=== PATIENT | female | born 2000 | race Caucasian/White ===

== ENCOUNTER 2023-12-05 16:36 | Emergency (ER) | payer BC, SELFPAY ==
[2023-12-05 16:38] VITALS: BP 149/99
[2023-12-05 16:41] LABS: Glucose - Point of Care 219 mg/dl (70-99)
[2023-12-05 16:51] LABS: % Basophils 1.3 % (0-2); % Eosinophils 5.5 % (0-6); % Immature Granulocytes 0.1 % (0-0.5); % Lymphocytes 39.1 % (20.5-51.1); % Monocytes 5.9 % (1.7-9.3); % Neutrophils 48.1 % (42.2-75.2); Absolute Basophils 0.1 10^3/uL (0-0.2); Absolute Eosinophils 0.4 10^3/uL (0-0.7); Absolute Lymphocytes 2.8 10^3/uL (1.2-3.4); Absolute Monocytes 0.4 10^3/uL (0.1-0.6); Absolute Neutrophils 3.4 10^3/uL (1.4-6.5); Hemoglobin 14.9 g/dL (12.0-16.0); Mean Corp Hgb Conc. 34.7 g/dL (33.0-37.0); Mean Corpuscular Hgb 28.5 pg (27.0-31.0); Mean Corpuscular Volume 82.2 fL (81.0-99.0); Mean Platelet Volume 9.7 fL (7.4-10.4); Nucleated Red Blood Cells % 0 %; Platelet Count 359 10^3/uL (130-400); Red Blood Cell Count 5.23 10^6/uL (4.20-5.40); Red Cell Dist. Width 11.4 % (11.5-14.5); White Blood Cell Count 7.1 10^3/uL (4.8-10.8)
[2023-12-05 17:08] LABS: HCG, Serum Qualitative Screen Negative
[2023-12-05 17:11] LABS: ALT (SGPT) 24 U/L (0-35); AST (SGOT) 28 U/L (14-36); Albumin 4.2 g/dl (3.5-5.0); Alkaline Phosphatase 172 U/L (38-126); Blood Urea Nitrogen 5 mg/dl (7-17); Calcium 9.4 mg/dl (8.4-10.2); Carbon Dioxide 28 mmol/L (22-30); Chloride 104 mmol/L (98-107); Glucose 220 mg/dl (70-99); Potassium 4.1 mmol/L (3.5-5.1); Sodium 136 mmol/L (135-145); Total Bilirubin 0.6 mg/dl (0.2-1.3); Total Protein 7.3 g/dl (6.3-8.2); eGFR > 60.00
== END 2023-12-05 17:01 ==
LOC: EMR 16:36
PROVIDERS: EMERGENCY PHYSICIAN Emergency Medicine
DX: R19.7 Diarrhea, unspecified (principal); E10.8 Type 1 diabetes mellitus with unspecified complications; Z53.21 Procedure and treatment not carried out due to patient leaving prior to being seen by health care provider
CPT/HCPCS: 99281; 80053; 82010; 82962; 84703; 85025

== ENCOUNTER 2024-08-24 11:16 | Emergency (ER) | payer OTHER, SELFPAY ==
[2024-08-24 11:21] VITALS: BP 112/80; BMI 31.1
[2024-08-24 11:23] VITALS: BP 112/80
[2024-08-24 11:28] LABS: Glucose - Point of Care 313 mg/dl (70-99)
[2024-08-24] MEDS: NSS 1000 IV ×2 (11:35→12:36)
[2024-08-24] MEDS: ZOFRAN 4 MG IV (11:35)
[2024-08-24 11:41] LABS: Urine Albumin Negative (Neg - Trace); Urine Bilirubin Negative (Negative); Urine Character Clear (Clear); Urine Color Yellow; Urine Glucose 3+ (Negative); Urine Ketone 3+ (Negative); Urine Leukocyte Negative (Negative); Urine Nitrite Negative (Negative); Urine Occult Blood Negative (Negative); Urine Specific Gravity 1.015 (<1.030); Urine Urobilinogen Negative (Neg - 1+); Venous Blood Gas B.E. -0.9 mmol/L (-4 to +4); Venous Blood Gas HCO3 24.3 mmol/L (22-27); Venous Blood Gas pCO2 41 mmHg (35-48); Venous Blood Gas pH 7.38 (7.32-7.43); Venous Blood Gas pO2 192 mmHg (30-50)
[2024-08-24 11:42] LABS: % Basophils 0.9 % (0-2); % Eosinophils 4.1 % (0-6); % Immature Granulocytes 0.2 % (0-0.5); % Lymphocytes 24.2 % (20.5-51.1); % Monocytes 5.7 % (1.7-9.3); % Neutrophils 64.9 % (42.2-75.2); Absolute Basophils 0.1 10^3/uL (0-0.2); Absolute Eosinophils 0.2 10^3/uL (0-0.7); Absolute Lymphocytes 1.4 10^3/uL (1.2-3.4); Absolute Monocytes 0.3 10^3/uL (0.1-0.6); Absolute Neutrophils 3.7 10^3/uL (1.4-6.5); Hematocrit 39.2 % (37.0-47.0); Hemoglobin 13.8 g/dL (12.0-16.0); Mean Corp Hgb Conc. 35.2 g/dL (33.0-37.0); Mean Corpuscular Hgb 28.2 pg (27.0-31.0); Mean Platelet Volume 9.8 fL (7.4-10.4); Nucleated Red Blood Cells % 0 %; Platelet Count 289 10^3/uL (130-400); Red Cell Dist. Width 11.7 % (11.5-14.5); White Blood Cell Count 5.6 10^3/uL (4.8-10.8)
[2024-08-24 11:59] LABS: ALT (SGPT) 15 U/L (0-35); AST (SGOT) 21 U/L (14-36); Albumin 4.1 g/dl (3.5-5.0); Alkaline Phosphatase 139 U/L (38-126); Blood Urea Nitrogen 7 mg/dl (7-17); Calcium 9.4 mg/dl (8.4-10.2); Carbon Dioxide 26 mmol/L (22-30); Chloride 102 mmol/L (98-107); Estimated Creatinine Clearance > 125 ml/min; Glucose 313 mg/dl (70-99); Potassium 4.4 mmol/L (3.5-5.1); Sodium 137 mmol/L (135-145); Total Bilirubin 0.8 mg/dl (0.2-1.3); Total Protein 6.9 g/dl (6.3-8.2); eGFR > 60.00
[2024-08-24 12:00] VITALS: BP 96/78
--- NOTE | 2024-08-24 13:39 | ED.GENMED ---
History of Present Illness
General
Chief Complaint: Abdominal Symptoms
Source: patient
Time Seen by Provider: 08/24/24 11:27
History of Present Illness
History of Present Illness:
24-year-old female with past medical history of type 1 diabetes presenting to the emergency department for evaluation of hyperglycemia after she awoke noting that her insulin pump got disconnected and was not delivering her insulin properly.
Patient states her blood sugar upon awakening was 350. She endorses some abdominal discomfort and some nausea. Patient states her diabetes is usually well-controlled. Last admission was close to 13 years ago. Denies polyuria, polydipsia,
polyphasia. Denies any fevers or infectious symptoms.
Past History
Past History
ED Past Medical History: IDDM and Hypothyroidism; Negative Asthma, HTN or Hypercholesterolemia
ED Past Surgical History: None
Social History
Tobacco: Vaping
Alcohol: Occasional
Drug: None
Personal: Single
Living: with family
Employment: Employed
Family History
Family History: Diabetes
Review of Systems
Review of Systems
All Other Systems: ROS reviewed and negative except as documented in HPI and ROS
Phy Exam
Physical Exam
Physical Exam:
GENERAL: Alert , in no apparent distress
EYE: clear conjunctiva b/l
HEAD: NCAT
ENT: mmm.
CARDIAC: Regular rate and rhythm .
LUNGS: Clear breath sounds bilaterally, no acute respiratory distress, no wheezes/rales/rhonchi
ABDOMEN: Soft, without focal tenderness, no r/g, no cvat
NEUROLOGICAL: Alert and oriented
SKIN: Warm and dry, skin intact.
MUSCULOSKELETAL: well perfused.
PSYCH: Normal and appropriate interaction.
Scores
Heart Failure Risk
Heart Failure Risk Score: Not Applicable
Heart Score for Chest Pain Patients
STEMI patient?: Not applicable
Withdrawal Assessment of Alcohol
Withdrawal Assessment Completed?: Not applicable
Course
Orders/Labs/Results
Orders:
Orders
08/24/24 11:31
Complete Blood Count/With Diff Urgent
Comprehensive Metabolic Panel Urgent
Urine Culture Reflexed from UA [Urinalysis Reflex To Culture] Urgent
Date Specimen was Collected: 08/24/24
Time Specimen was Collected: 11:23
Venous Blood Gas Urgent
%Oxygen/Room Air: 97
08/24/24 11:32
0.9% Sodium Chloride 1000 ml [Nss] 1,000 ml IV BOLUS
Ondansetron Injectable [Zofran] 4 mg IV NOW STA
08/24/24 12:32
0.9% Sodium Chloride 1000 ml [Nss] 1,000 ml IV BOLUS
08/24/24 14:44
Urinalysis Urgent
Date Specimen was Collected: 08/24/24
Time Specimen was Collected: 14:46
Abnormal Lab Results
08/24/24 08/24/24
11:26 11:31
MCV 80.0 L fL
(81.0-99.0)
VBG pO2 192 H mmHg
(30-50)
Glucose 313 H mg/dl
(70-99)
Alkaline Phosphatase 139 H U/L
(38-126)
Urine Ketones 3+ A
(Negative)
Urine Glucose 3+ A
(Negative)
POC Glucose 313 H mg/dl
(70-99)
08/24/24 11:31
08/24/24 11:31
Vital Signs
Initial and Last Documented VS:
Initial Vital Signs
Temp Pulse Resp BP Pulse Ox
98.2 F 72 16 112/80 97
08/24/24 11:21 08/24/24 11:21 08/24/24 11:21 08/24/24 11:21 08/24/24 11:21
Last Documented Vital Signs
Temp Pulse Resp BP Pulse Ox
98.2 F 69 21 96/78 97
08/24/24 11:21 08/24/24 12:45 08/24/24 12:45 08/24/24 12:00 08/24/24 12:45
MDM/Problems Addressed
Differential Diagnosis Includes:
DKA, HHNK, hyperglycemia 2/2 device malfunction
MDM/Problems Addressed:
24-year-old female presenting to the emergency department for evaluation of hyperglycemia after her insulin pump malfunctioned overnight. Patient's fingerstick glucose greater than 300 here. Labs including VBG sent. Will order fluids. Patient's
insulin pump is now reconnected. Will hold off on dosing insulin to patient as I would be concerned of potentially causing patient to go hypoglycemic. Will closely monitor
*Pulse Oximetry
Patient hypoxic: no
*Critical Care Note
Total Time (30-74mins, 75-104mins- exclusive of procedures): Not Applicable
Comment
Comment:
Following 1 L of fluids patient notes that she is feeling a little bit better. Labs are reassuring with no anion gap, pH is within normal limits. Patient does have some ketones so we will continue to treat with fluids. I do anticipate discharge
home.
Patient Management
Escalation/DeEscalation of care consider admission/obs:
Patient feeling significantly better following 2 L of IV fluids. Her glucometer shows that she has a current glucose of 125. Patient feels comfortable being discharged home. Requesting a second urine be sent to check for ketones. Advised patient
follow-up with primary care provider but otherwise stable for discharge home and aware of return precautions.
ED Attending Note
-
Portions of this chart may have been created with voice recognition software.� Occasional wrong word or��sound alike� substitutions may have occurred due to the inherent limitations of voice recognition software.
Discharge Plan
Departure
Patient Disposition: Home (Routine Discharge)
Date of Disposition: 08/24/24
Time of Disposition: 14:43
Patient with high blood pressure during this ER visit?: No
Discharge Problem:
Acute hyperglycemia, Insulin pump mechanical complication
Instructions: High Blood Sugar, Adult ED
Prescriptions:
No Action
levothyroxine [Synthroid] 137 mcg Tablet
137 mcg PO DAILY
clonazepam [Klonopin] 0.5 mg Tablet
0.5 mg PO BID PRN (Reason: anxiety)
norethindrone-e.estradiol-iron [Junel FE 12/04 (28)] 1 mg-20 mcg (21)/75 mg (7) Tablet
1 tab PO DAILY
insulin aspart U-100 [Novolog U-100 Insulin aspart] 100 unit/mL Solution
0 sliding scale dose SC DIRECTED
Rx Instructions:
through insulin pump
buspirone [BuSpar] 10 mg Tablet
10 mg PO BID
sertraline 200 mg Capsule
200 mg PO DAILY
ondansetron 4 mg tablet,disintegrating
4 mg PO QID PRN (Reason: nausea and vomiting) Qty: 20 0RF
ondansetron 4 mg tablet,disintegrating
4 mg PO Q8H PRN (Reason: nausea and vomiting) Qty: 14 0RF
dicyclomine 10 mg capsule
10 mg PO QID PRN (Reason: abdominal pain) Qty: 10 0RF
Referrals:
Madhavi Darby MD [Family Provider] -
Interventions
Interventions:
*Risk Screen - Suicide Last Done: 08/24/24 11:21
*General Assessment Last Done: 08/24/24 11:21
*Neglect/Abuse Screening Last Done: 08/24/24 11:21
*ED COVID-19 Vaccine History Last Done: 08/24/24 11:21
RW-Cfkxmf-Ivfgngyfxd Assessment Last Done: 08/24/24 11:21
Discharge Date and Time
Print Language: BULGARIAN
[2024-08-24 15:32] LABS: Urine Albumin Negative (Neg - Trace); Urine Bilirubin Negative (Negative); Urine Character Slightly Cloudy (Clear); Urine Color Yellow; Urine Glucose 3+ (Negative); Urine Ketone 1+ (Negative); Urine Leukocyte Negative (Negative); Urine Nitrite Negative (Negative); Urine Occult Blood Negative (Negative); Urine Urobilinogen 1+ (Neg - 1+)
== END 2024-08-24 15:09 | disposition home or self-care (01) ==
LOC: EMR 11:16
PROVIDERS: Physician Assistant Medical; EMERGENCY PHYSICIAN Emergency Medicine; FAMILY PHYSICIAN Internal Medicine Endocrinology, Diabetes & Metabolism
DX: E10.65 Type 1 diabetes mellitus with hyperglycemia (principal); T85.694A Other mechanical complication of insulin pump, initial encounter; T38.3X6A Underdosing of insulin and oral hypoglycemic [antidiabetic] drugs, initial encounter; Y82.8 Other medical devices associated with adverse incidents; F17.290 Nicotine dependence, other tobacco product, uncomplicated
CPT/HCPCS: 99284; 96374; 96361 ×2; 80053; 81003; 82805; 82962; 85025

== ENCOUNTER 2024-10-20 05:20 | Emergency (ER) | payer OTHER, SELFPAY ==
[2024-10-20 05:30] VITALS: BP 151/91
[2024-10-20 06:02] VITALS: BMI 31.2
[2024-10-20] MEDS: ZOFRAN 4 MG IV (06:23)
[2024-10-20] MEDS: NSS 500 IV (06:23)
[2024-10-20 06:27] LABS: % Basophils 0.9 % (0-2); % Eosinophils 4.3 % (0-6); % Immature Granulocytes 0.2 % (0-0.5); % Lymphocytes 26.4 % (20.5-51.1); % Monocytes 5.9 % (1.7-9.3); % Neutrophils 62.3 % (42.2-75.2); Absolute Basophils 0.1 10^3/uL (0-0.2); Absolute Eosinophils 0.2 10^3/uL (0-0.7); Absolute Lymphocytes 1.5 10^3/uL (1.2-3.4); Absolute Monocytes 0.3 10^3/uL (0.1-0.6); Absolute Neutrophils 3.5 10^3/uL (1.4-6.5); Hematocrit 42.2 % (37.0-47.0); Hemoglobin 14.5 g/dL (12.0-16.0); Mean Corp Hgb Conc. 34.4 g/dL (33.0-37.0); Mean Corpuscular Hgb 27.7 pg (27.0-31.0); Mean Corpuscular Volume 80.7 fL (81.0-99.0); Mean Platelet Volume 10.1 fL (7.4-10.4); Nucleated Red Blood Cells % 0 %; Platelet Count 334 10^3/uL (130-400); Red Blood Cell Count 5.23 10^6/uL (4.20-5.40); Red Cell Dist. Width 11.7 % (11.5-14.5); White Blood Cell Count 5.6 10^3/uL (4.8-10.8)
[2024-10-20] MEDS: PROTONIX IV 40 MG IV (06:32)
[2024-10-20 06:40] LABS: HCG, Serum Qualitative Screen Negative
[2024-10-20 06:47] LABS: ALT (SGPT) 19 U/L (0-35); AST (SGOT) 21 U/L (14-36); Albumin 4.3 g/dl (3.5-5.0); Alkaline Phosphatase 170 U/L (38-126); Blood Urea Nitrogen 6 mg/dl (7-17); Calcium 9.4 mg/dl (8.4-10.2); Carbon Dioxide 25 mmol/L (22-30); Chloride 100 mmol/L (98-107); Estimated Creatinine Clearance > 125 ml/min; Glucose 341 mg/dl (70-99); Lipase 62 U/L (23-300); Potassium 3.8 mmol/L (3.5-5.1); Sodium 136 mmol/L (135-145); Total Bilirubin 0.6 mg/dl (0.2-1.3); Total Protein 7.1 g/dl (6.3-8.2); eGFR > 60.00
[2024-10-20 07:00] LABS: Magnesium 1.6 mg/dl (1.6-2.3)
--- NOTE | 2024-10-20 07:35 | ED.GENMED ---
History of Present Illness
General
Chief Complaint: Abdominal Pain
Source: patient
Exam Limitations: none
Time Seen by Provider: 10/20/24 06:04
Nursing documentation reviewed up to this point in time: agreed with
History of Present Illness
History of Present Illness:
Patient with history of type 1 diabetes on insulin pump, presents to ED secondary to persistent left upper abdominal pain associated with nausea sensation without vomiting over the past 5 days, along with decreased appetite. This morning, she noted
that her blood sugar was low (70s). She proceeded to drink multiple cups of apple juice and orange juice. Shortly afterwards, patient started to have multiple loose bowel movements along with elevated blood sugar. Denies fever or chills.
Abdominal pain described as crampy/sharp, nonradiating, without any alleviating or exhausting factors. Denies sick contact. Denies recent travel. Denies recent change in medications or diet. 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
states that her blood sugars continue to remain high, usually in 200 range.
Past History
Past History
ED Past Medical History: IDDM and Hypothyroidism; Negative Asthma, HTN or Hypercholesterolemia
ED Past Surgical History: None
Social History
Tobacco: Vaping
Alcohol: Occasional
Drug: None
Personal: Single
Living: with family
Employment: Employed
Family History
Family History: Diabetes
Review of Systems
Review of Systems
Allergies reviewed?: Yes
All Other Systems: ROS reviewed and negative except as documented in HPI and ROS
Constitutional: Reports no symptoms
EENT: Reports no symptoms
Respiratory: Reports no symptoms
Cardiac: Reports no symptoms
ABD/GI: Reports abdominal pain, nausea and diarrhea; Denies vomiting
: Reports no symptoms
Musculoskeletal: Reports no symptoms
Skin: Reports no symptoms
Neurological: Reports no symptoms
Phy Exam
Physical Exam
Physical Exam:
Physical Exam
General: no apparent distress, not acutely ill. afebrile
Head: nc/at. eomi
Neck: supple. no meningeal signs. normal posterior pharynx
Heart: tachycardic, no murmur. equal radial pulses.
Lungs: no acute respiratory distress. clear bilaterally
Abdomen: normal bowel sounds. not tender. no distention
Neuro: alert and oriented. no focal neurological deficits
Skin: no rash
Psychiatric: well kept. interactive and cooperative
Extremities: no edema. no calf tenderness.
Course
Orders/Labs/Results
Orders:
Orders
10/20/24 05:57
IV Insert/Care/Rem.- Treatment PRN
10/20/24 05:58
Test Result ONCE
10/20/24 06:01
Complete Blood Count/With Diff Urgent
Comprehensive Metabolic Panel Urgent
HCG, Serum Qualitative Screen Urgent
Comment: Notify provider if positive test present
Lipase Urgent
Magnesium Urgent
Comment: ADD ON
Monotest Urgent
Comment: ADD ON
10/20/24 06:15
Add On- LAB Urgent
Tests Added?: magnesium, monotest
0.9% Sodium Chloride 500 ml [Nss] 500 ml IV BOLUS
Ondansetron Injectable [Zofran] 4 mg .ROUTE .STK-MED ONE
Ondansetron Injectable [Zofran] 4 mg IV NOW STA
Pantoprazole [Protonix IV] 40 mg IV NOW STA
10/20/24 07:07
STOOL [C difficile Antigen & Toxins] Urgent
TRAV Source: Feces/Stool
Specimen Description:
Date Specimen was Collected: 10/20/24
Time Specimen was Collected: 07:02
Stool Culture Urgent
TRAV Source: Feces/Stool
Specimen Description:
Date Specimen was Collected: 10/20/24
Time Specimen was Collected: 07:02
10/20/24 08:20
Urinalysis Reflex To Culture Urgent
Date Specimen was Collected: 10/20/24
Time Specimen was Collected: 07:02
10/20/24 09:22
CT Abd/pel Without Iv Or Oral Urgent
Comment:
Reason For Exam: left flank/back pain
Abnormal Lab Results
10/20/24 10/20/24 10/20/24
06:01 08:17 08:20
MCV 80.7 L fL
(81.0-99.0)
BUN 6 L mg/dl
(7-17)
Glucose 341 H mg/dl
(70-99)
Alkaline Phosphatase 170 H U/L
(38-126)
Urine Glucose 3+ A
(Negative)
POC Glucose 259 H mg/dl
(70-99)
10/20/24 06:01
10/20/24 06:01
Vital Signs
Initial and Last Documented VS:
Initial Vital Signs
Temp Pulse Resp BP Pulse Ox
97.9 F 141 22 151/91 99
10/20/24 05:30 10/20/24 05:30 10/20/24 05:30 10/20/24 05:30 10/20/24 05:30
Last Documented Vital Signs
Temp Pulse Resp BP Pulse Ox
97.9 F 88 16 102/73 96
10/20/24 05:30 10/20/24 10:05 10/20/24 10:05 10/20/24 10:05 10/20/24 10:05
MDM/Problems Addressed
MDM/Problems Addressed:
Patient with an unremarkable workup in ED, including blood work and CT abdomen pelvis. Patient remains afebrile, hemodynamically stable, with improved blood sugar during observation. Patient with nonspecific abdominal pain, likely viral in nature
versus musculoskeletal. Patient otherwise is stable to be discharged home, with recommendation to continue bland diet at home along with PCP follow-up. Patient advised to return to ED with worsening symptoms, i.e. fever/worsening pain/vomiting.
*Critical Care Note
Total Time (30-74mins, 75-104mins- exclusive of procedures): Not Applicable
ED Attending Note
-
Portions of this chart may have been created with voice recognition software.� Occasional wrong word or��sound alike� substitutions may have occurred due to the inherent limitations of voice recognition software.
Discharge Plan
Departure
Patient Disposition: Home (Routine Discharge)
Date of Disposition: 10/20/24
Time of Disposition: 10:41
Patient with high blood pressure during this ER visit?: Yes
Condition: Good
Discharge Problem:
Abdominal pain, Hyperglycemia
Instructions: [place] Diet, High Blood Sugar, Adult ED, Abdominal Pain
Prescriptions:
No Action
levothyroxine [Synthroid] 137 mcg Tablet
137 mcg PO DAILY
clonazepam [Klonopin] 0.5 mg Tablet
0.5 mg PO BID PRN (Reason: anxiety)
norethindrone-e.estradiol-iron [June FE 12/04 (28)] 1 mg-20 mcg (21)/75 mg (7) Tablet
1 tab PO DAILY
insulin aspart U-100 [Novolog U-100 Insulin aspart] 100 unit/mL Solution
0 sliding scale dose SC DIRECTED
Rx Instructions:
through insulin pump
buspirone [BuSpar] 10 mg Tablet
10 mg PO BID
sertraline 200 mg Capsule
200 mg PO DAILY
ondansetron 4 mg tablet,disintegrating
4 mg PO QID PRN (Reason: nausea and vomiting) Qty: 20 0RF
ondansetron 4 mg tablet,disintegrating
4 mg PO Q8H PRN (Reason: nausea and vomiting) Qty: 14 0RF
dicyclomine 10 mg capsule
10 mg PO QID PRN (Reason: abdominal pain) Qty: 10 0RF
Referrals:
Madhavi Darby MD [Family Provider] -
Activity Restrictions/Additional Instructions:
As discussed, please follow-up with your primary care physician with any further concerns. Please return to ED with worsening symptoms, i.e. fever/worsening pain/vomiting.
Interventions
Interventions:
*Risk Screen - Suicide Last Done: 10/20/24 05:30
*General Assessment Last Done: 10/20/24 06:02
*Neglect/Abuse Screening Last Done: 10/20/24 06:02
ED- Fall Risk Assessment Last Done: 10/20/24 06:37
*ED COVID-19 Vaccine History Last Done: 10/20/24 06:02
*Nursing Disposition Last Done: 10/20/24 11:00
YX-Kypunl-Zxwhucooiw Assessment Last Done: 10/20/24 06:37
Discharge Date and Time
Discharge Date/Time: 10/20/24 11:15
Print Language: KAZAKH
[2024-10-20 07:54] LABS: Monotest Negative (Negative)
[2024-10-20 08:12] VITALS: BP 104/70
[2024-10-20 08:18] LABS: Glucose - Point of Care 259 mg/dl (70-99)
[2024-10-20 09:11] LABS: Urine Albumin Negative (Neg - Trace); Urine Bilirubin Negative (Negative); Urine Character Clear (Clear); Urine Color Yellow; Urine Glucose 3+ (Negative); Urine Ketone Negative (Negative); Urine Leukocyte Negative (Negative); Urine Nitrite Negative (Negative); Urine Occult Blood Negative (Negative); Urine Specific Gravity 1.015 (<1.030); Urine Urobilinogen Negative (Neg - 1+)
[2024-10-20 10:05] VITALS: BP 102/73
== END 2024-10-20 11:15 | disposition home or self-care (01) ==
LOC: EMR 05:20
PROVIDERS: Student in an Organized Health Care Education/Training Program; EMERGENCY PHYSICIAN Emergency Medicine; FAMILY PHYSICIAN Internal Medicine Endocrinology, Diabetes & Metabolism
DX: R10.9 Unspecified abdominal pain (principal); E10.65 Type 1 diabetes mellitus with hyperglycemia; E03.9 Hypothyroidism, unspecified; F17.290 Nicotine dependence, other tobacco product, uncomplicated; Z83.3 Family history of diabetes mellitus; Z79.4 Long term (current) use of insulin; Z96.41 Presence of insulin pump (external) (internal)
CPT/HCPCS: 99284; 96374; 96375; 96361; 74176; 80053; 81003; 82962; 83690; 83735; 84703; 85025; 86308; 87045; 87046; 87077; 87324; 87427; 87449

== ENCOUNTER 2025-06-14 17:01 | Emergency (ER) | payer OTHER, SELFPAY ==
[2025-06-14 17:04] VITALS: BP 143/93
--- NOTE | 2025-06-14 18:02 | ED.GENMED ---
History of Present Illness
General
Chief Complaint: Dental Problem
Source: patient
Exam Limitations: none
Time Seen by Provider: 06/14/25 17:44
Nursing documentation reviewed up to this point in time: agreed with
History of Present Illness
History of Present Illness:
24-year-old female with history as noted presents to the ER for evaluation of dental pain. Patient reports that she has poor dentition and has not seen a dentist because she has a phobia. She says that over the past few months she noticed that her
left upper rear molar has been cracked and has started to turn black. Over the past 48 hours she has started to develop significant pain in that tooth and in the left side of her face. She has been taking Tylenol and ibuprofen but decided to come
to the ER with poorly controlled pain. She has not had a fever or chills. She has not noticed any facial swelling or redness. She denies any other acute issues.
Past History
Past History
ED Past Medical History: IDDM and Hypothyroidism; Negative Asthma, HTN or Hypercholesterolemia
ED Past Surgical History: None
Social History
Tobacco: Vaping
Alcohol: Occasional
Drug: None
Personal: Single
Living: with family
Employment: Employed
Family History
Family History: Diabetes
Review of Systems
Review of Systems
All Other Systems: ROS reviewed and negative except as documented in HPI and ROS
Constitutional: Denies fever
EENT: Reports other (Dental pain)
Respiratory: Denies trouble breathing
Cardiac: Denies chest pain
ABD/GI: Denies vomiting
Phy Exam
Physical Exam
Physical Exam:
General: Well appearing and non-toxic
HEENT: protecting airway, no tongue elevation, midline uvula; she has visible tooth decay left posterior molar tooth #16 with pain to percussion; no visible swelling of the gum; she has no swelling of the cheek or face on the left side
Neck: appears supple
CV: No evidence of cyanosis
Resp: No accessory muscle use
Abd: Non-distended
Extremities: No deformities
Neuro: Alert
Psych: Normal affect
Skin: Intact
Scores
Heart Failure Risk
Heart Failure Risk Score: Not Applicable
Heart Score for Chest Pain Patients
STEMI patient?: Not applicable
Withdrawal Assessment of Alcohol
Withdrawal Assessment Completed?: Not applicable
Course
Orders/Labs/Results
Orders:
Orders
06/14/25 18:00
Clindamycin HCl [Cleocin] 450 mg PO NOW STA
Vital Signs
Initial and Last Documented VS:
Initial Vital Signs
Temp Pulse Resp BP Pulse Ox
36.6 C 71 15 143/93 99
06/14/25 17:04 06/14/25 17:04 06/14/25 17:04 06/14/25 17:04 06/14/25 17:04
Last Documented Vital Signs
Temp Pulse Resp BP Pulse Ox
36.6 C 71 15 143/93 99
06/14/25 17:04 06/14/25 17:04 06/14/25 17:04 06/14/25 17:04 06/14/25 18:06
Procedures
Dentalgia
Dental Block: Nerve Block (Posterior superior alveolar)
Tooth Number: 16
Abcess drained?: No
Pt tolerated procedure well w/ no immediate adverse effects?: Yes
MDM/Problems Addressed
Differential Diagnosis Includes:
Dental caries/tooth decay, dental abscess
MDM/Problems Addressed:
24-year-old female presents with increasing pain left upper molar; she has had chronic tooth decay in that tooth and has had increasing pain over the past 48 hours poorly controlled with Tylenol and ibuprofen. Vitals and exam as above. Suspect
that she likely has developing dental abscess. Fortunately no significant swelling of the face or skin changes. Airway intact. No fever or signs of sepsis. Will plan to start antibiotics. Will provide dental block for short-term pain control
and advised to consistently take Tylenol and ibuprofen at home. Advised that she needs to see a oral surgeon as soon as possible and provided follow-up information. She feels very comfortable with this plan. All questions answered.
Pain resolved with posterior superior alveolar block using lidocaine and bupivacaine. Stable for discharge with oral surgeon referral. Spoke about follow-up plan return precautions and all questions answered.
*Pulse Oximetry
SaO2: 99
Oxygen Mode of Delivery: Room air
Patient hypoxic: no (99%)
*Critical Care Note
Total Time (30-74mins, 75-104mins- exclusive of procedures): Not Applicable
Data Reviewed
Source: patient
Further Testing Considered But Not Given:
Considered CT of the face
ED Attending Note
-
Portions of this chart may have been created with voice recognition software.� Occasional wrong word or��sound alike� substitutions may have occurred due to the inherent limitations of voice recognition software.
Discharge Plan
Departure
Patient Disposition: Home (Routine Discharge)
Date of Disposition: 06/14/25
Time of Disposition: 18:49
Patient with high blood pressure during this ER visit?: Yes
Discharge Problem:
Pain, dental, Abscess, dental
Instructions: Dental Pain (DC)
Prescriptions:
New
clindamycin HCl [Cleocin HCl] 150 mg capsule
450 mg PO TID 10 Days Qty: 90 0RF
No Action
levothyroxine [Synthroid] 137 mcg Tablet
137 mcg PO DAILY
clonazepam [Klonopin] 0.5 mg Tablet
0.5 mg PO BID PRN (Reason: anxiety)
norethindrone-e.estradiol-iron [Junel FE 12/04 ()] 1 mg-20 mcg (21)/75 mg (7) Tablet
1 tab PO DAILY
insulin aspart U-100 [Novolog U-100 Insulin aspart] 100 unit/mL Solution
0 sliding scale dose SC DIRECTED
Rx Instructions:
through insulin pump
buspirone [BuSpar] 10 mg Tablet
10 mg PO BID
sertraline 200 mg Capsule
200 mg PO DAILY
ondansetron 4 mg tablet,disintegrating
4 mg PO QID PRN (Reason: nausea and vomiting) Qty: 20 0RF
ondansetron 4 mg tablet,disintegrating
4 mg PO Q8H PRN (Reason: nausea and vomiting) Qty: 14 0RF
dicyclomine 10 mg capsule
10 mg PO QID PRN (Reason: abdominal pain) Qty: 10 0RF
Referrals:
Marguerite Boswell, DMD [[facility], Dental] - Tomorrow
Referral Note: Call tomorrow to follow up with the oral surgeon as soon as possible.
Activity Restrictions/Additional Instructions:
Thank you for visiting the Emergency Department at [facility].
1. Please schedule a follow up appointment as directed. Call first thing tomorrow morning to make an appointment.
2. If indicated, please take your medications as instructed and indicated on discharge paperwork.
3. If any of your symptoms do not improve, or persist, or become more severe within 6-12 hours, please return to the emergency department for further care.
4. Please return to the emergency department if you develop a headache, neck pain/stiffness, fever greater than 100.4F, chest pain, shortness of breath, persistent nausea, vomiting, slurred speech, difficulty walking, numbness/tingling, weakness,
signs of infection or any other symptoms that are worrisome to you.
Please call [phone] if you have any questions.
Interventions
Interventions:
*Risk Screen - Suicide Last Done: 06/14/25 17:04
*General Assessment Last Done: 06/14/25 17:04
*Neglect/Abuse Screening Last Done: 06/14/25 17:04
*ED COVID-19 Vaccine History Last Done: 06/14/25 17:04
Discharge Date and Time
Print Language: PORTUGUESE
[2025-06-14] MEDS: CLEOCIN 450 MG PO (18:12)
== END 2025-06-14 19:05 | disposition home or self-care (01) ==
LOC: EMR 17:01
PROVIDERS: EMERGENCY PHYSICIAN Emergency Medicine; FAMILY PHYSICIAN Physician Assistant Medical
DX: K04.7 Periapical abscess without sinus (principal); E03.9 Hypothyroidism, unspecified; E11.9 Type 2 diabetes mellitus without complications; F17.290 Nicotine dependence, other tobacco product, uncomplicated; Z79.4 Long term (current) use of insulin
CPT/HCPCS: 64400; 99284